=== PATIENT | female | born 1995 | race African-American/Black ===

== ENCOUNTER 2017-07-05 12:00 | Emergency (ER) | payer MEDICAID ==
[~2017-07-05] VITALS: Ht 160 cm; Wt 54.4 kg
[2017-07-05] MEDS ORDERED: PROMETHAZINE 25 MG TABLET. PO ONE (12:45)
[2017-07-05] MEDS ORDERED: ONDANSETRON ODT 4 MG TAB.RAPDIS PO ONE (12:45)
--- NOTE | 2017-07-05 13:21 | PHYS DOC ---
Past History Past Medical History: Anxiety, Depression, Ovarian Cyst, UTI, Other Past Surgical History: No Surgical History Alcohol Use: None Drug Use: None Adult General Chief Complaint Chief Complaint: ABDOMINAL PAIN HPI HPI Patient is a 22 year old F who presents with left lower quadrant abdominal pain and nausea over the past several days. She has missed her last 2 periods and typically has regular periods. 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 She feels that she also has had urinary frequency without dysuria. She notes loose stools without increased frequency. She has no significant history of vomiting. Her belly pain is dull, in the left lower quadrant, and worsened by palpation Review of Systems Review of Systems Constitutional: Denies fever or chills [] Eyes: Denies change in visual acuity, redness, or eye pain [] HENT: Denies nasal congestion or sore throat [] Respiratory: Denies cough or shortness of breath [] Cardiovascular: No additional information not addressed in HPI [] GI: Negative except history of present illness : Denies dysuria or hematuria [] Musculoskeletal: Denies back pain or joint pain [] Integument: Denies rash or skin lesions [] Neurologic: Denies headache, focal weakness or sensory changes [] Endocrine: Denies polyuria or polydipsia [] Family History Family History Noncontributory Current Medications Current Medications Current Medications Medications (Trade) Dose Ordered Sig/Minor Start Time Stop Time Status Last Admin Dose Admin Ondansetron HCl (Zofran Odt) 4 mg 1X ONCE 07/05/17 12:45 07/05/17 12:46 UNV Promethazine HCl (Phenergan) 25 mg 1X ONCE 07/05/17 12:45 07/05/17 12:46 DC Allergies Allergies Allergies Coded Allergies Type Severity Reaction Last Updated Verified ondansetron Allergy Intermediate Swelling 07/05/17 Yes Physical Exam Physical Exam Constitutional: Well developed, well nourished, no acute distress, non-toxic appearance. [] HENT: Normocephalic, atraumatic, bilateral external ears normal, oropharynx moist, no oral exudates, nose normal. [] Eyes: PERRLA, EOMI, conjunctiva normal, no discharge. [] Neck: Normal range of motion, no tenderness, supple, no stridor. [] Cardiovascular:Heart rate regular rhythm, no murmur [] Lungs & Thorax: Bilateral breath sounds clear to auscultation [] Abdomen: Bowel sounds normal, soft, no masses, no pulsatile masses. [] Mild generalized lower abdominal tenderness Skin: Warm, dry, no erythema, no rash. [] Back: No tenderness, no CVA tenderness. [] Extremities: No tenderness, no cyanosis, no clubbing, ROM intact, no edema. [] Neurologic: Alert and oriented X 3, normal motor function, normal sensory function, no focal deficits noted. [] Psychologic: Affect normal, judgement normal, mood normal. [] Current Patient Data Vital Signs Vital Signs Date Time Temp Pulse Resp B/P (MAP) Pulse Ox O2 Delivery O2 Flow Rate FiO2 07/05/17 12:10 98.1 78 18 98 Room Air Lab Results Laboratory Tests Test 07/05/17 13:04 POC Urine HCG, Qualitative hcg negative (Negative) EKG EKG [] Radiology/Procedures Radiology/Procedures Pelvic ultrasound: Radiology report was reviewed and found to have no acute disease Course & Med Decision Making Course & Med Decision Making Pertinent Labs and Imaging studies reviewed. (See chart for details) [] Dragon Disclaimer Dragon Disclaimer This chart was dictated in whole or in part using Voice Recognition software in a busy, high-work load, and often noisy Emergency Department environment. It may contain unintended and wholly unrecognized errors or omissions. Departure Departure: Impression: Primary Impression: UTI (urinary tract infection) Additional Impression: STD exposure Disposition: HOME, SELF-CARE Condition: STABLE Referrals: PCP,NO (PCP) Patient Instructions: Urinary Tract Infection Additional Instructions: Tarah was seen in the emergency room for urinary frequency and lower abdominal pain. No emergency medical condition was found during history and physical exam. Her urine was suspicious for a urinary tract infection and she feels that she has had potential exposure to STD. She was treated in the emergency room with antibiotics for both. She was advised to return to the emergency room if she develops new or worsening symptoms. She was advised to follow-up with her primary care doctor as soon as possible to establish care for further management. Problem Qualifiers Primary Impression: UTI (urinary tract infection) Urinary tract infection type: acute cystitis Hematuria presence: without hematuria Qualified Codes: N30.00 - Acute cystitis without hematuria JOSSE MOHAN MD Jul 05, 2017 13:21
[2017-07-05 13:23] LABS: BACTERIA,URINE MOD /HPF (0-FEW); BILIRUBIN,URINE NEG (NEG); CLARITY,URINE HAZY; COLOR,URINE YELLOW; GLUCOSE,URINE NEG (NEG); NITRITE,URINE NEG (NEG); RBC,URINE 0 /HPF (0-2); UROBILINOGEN,URINE 0.2 mg/dL (0.2 mg/dL)
[2017-07-05 13:24] LABS: SQUAMOUS EPITHELIAL CELL,UR MANY /LPF
--- NOTE | 2017-07-05 13:53 | RAD ---
Pelvic ultrasound 07/05/2017 Clinical history: Left pelvic pain for 2 weeks. Amenorrhea for 2 months. Negative test. Technique: Using the distended urinary bladder as a sonographic window, a real-time ultrasound examination of the pelvis was performed. Multiple images were obtained. Findings: The uterus is within normal limits in size and echogenicity. It measures 9.2 x 5.0 x 3.9 cm in longitudinal, transverse, and AP dimensions. The endometrial echo complex measures 5 mm in thickness which is within normal limits. No focal abnormality of the uterus is seen. Both ovaries are within normal limits in size and echogenicity. The right ovary measures 2.4 x 1.9 x 1.9 cm in size. The left ovary measures 2.9 x 2.7 x 2.7 cm in size. No adnexal mass is seen. No free fluid is noted. Impression: Negative study. :
[2017-07-05] MEDS ORDERED: cefTRIAXone IM 250 MG VIAL IM ONE (14:30)
[2017-07-05] MEDS ORDERED: AZITHROMYCIN 250 MG TABLET. PO ONE (14:30)
[2017-07-05 15:00] VITALS: BP 116/62
== END 2017-07-05 15:08 | disposition home or self-care (01) ==
LOC: ER 12:00
DX: N30.00 Acute cystitis without hematuria (principal); Z20.2 Contact with and (suspected) exposure to infections with a predominantly sexual mode of transmission; Z87.440 Personal history of urinary (tract) infections; Z88.8 Allergy status to other drugs, medicaments and biological substances
CPT/HCPCS: 76856; 81001; 81025; 96372; 99285; J0456; J0696; Q0169

== ENCOUNTER 2017-10-03 13:57 | Emergency (ER) | payer MEDICAID, OTHER ==
[2017-10-03 14:42] LABS: BASO % 0 % (0-3); EOS # 0.2 x10^3/uL (0.0-0.7); EOS % 3 % (0-3); HEMATOCRIT 33.6 % (36.0-47.0); HEMOGLOBIN 10.8 g/dL (12.0-15.5); LYMPH # 1.6 x10^3/uL (1.0-4.8); LYMPH % 28 % (24-48); MEAN CORPUSCULAR HEMOGLOBIN 25 pg (25-35); MEAN CORPUSCULAR HGB CONC 32 g/dL (31-37); MEAN CORPUSCULAR VOLUME 77 fL (79-100); MONO # 0.6 x10^3/uL (0.0-1.1); MONO % 10 % (0-9); NEUT # 3.4 x10^3uL (1.8-7.7); NEUT % 58 % (31-73); PLATELET COUNT 269 x10^3/uL (140-400); RED BLOOD COUNT 4.38 x10^6/uL (3.50-5.40); RED CELL DISTRIBUTION WIDTH 13.5 % (11.5-14.5); WHITE BLOOD COUNT 5.8 x10^3/uL (4.0-11.0)
[2017-10-03] MEDS ORDERED: MORPHINE SULFATE 2 MG/ML DISP.SYRIN. IV PRN (14:45)
[2017-10-03 15:13] LABS: ALBUMIN 3.5 g/dL (3.4-5.0); CALCIUM 8.7 mg/dL (8.5-10.1); CREATININE 0.6 mg/dL (0.6-1.0); GFR 152.7; POTASSIUM 3.9 mmol/L (3.5-5.1); TOTAL BILIRUBIN 0.2 mg/dL (0.2-1.0); TOTAL PROTEIN 7.1 g/dL (6.4-8.2)
--- NOTE | 2017-10-03 15:53 | RAD ---
First trimester ultrasound less than 14 weeks: Clinical indications: Left lower quadrant pain for 4 days. Positive test. Findings: Transabdominal study: The uterus is retroflexed. There is a question of a small gestational sac within the fundus of the uterus. Therefore, transvaginal sonography will be performed. There is a small amount of physiologic free fluid within the cul-de-sac. Both maternal ovaries are visualized and appear normal. Color Doppler flow is seen within both internal ovaries. No adnexal mass is seen. Transvaginal study: Number of fetuses: No pole is seen yet. There is a fluid collection within the fundal portion of the uterus in the endometrial canal. A small yolk sac is seen which confirms a gestational sac. Average gestational sac size: 0.4 cm which corresponds to an approximate gestational age of 5 weeks and 1 day EDC is June 04, 2018. heart rate: None seen yet. Cervical length: Greater than 3.0 cm. Extrachorionic hemorrhage: None. Uterus: No uterine fibroids are seen. Maternal ovaries: Right ovary: 2.2 cm x 2.4 cm x 3.1 cm. Small corpus luteum seen within the right ovary measuring 8 mm. Color-flow Doppler: Present. Left ovary: 1.8 cm x 2.1 cm x 2.4 cm. Normal. Color-flow Doppler: Present. Adnexa: no adnexal masses are seen. Free fluid: Small amount. Impression: Gestational sac containing only a yolk sac at this in point in time with approximate gestational age of 5 weeks. Therefore, correlation with serial quantitative beta hCG studies is recommended.
--- NOTE | 2017-10-03 16:06 | PHYS DOC ---
General Chief Complaint: ABDOMINAL PAIN Stated Complaint: ABD PAIN Time Seen by MD: 14:45 Source: patient Exam Limitations: no limitations Problems: History of Present Illness Initial Comments Patient is a 22-year-old 5 para 2 female with positive home test who comes to the ED complaining of left adnexal pain. Patient states that she has history of ectopic and current symptoms are similar to prior occurrence. She states that symptoms have been increasing for the past 4 days she's had no bleeding last menstrual period was the beginning of August. Her vital signs are stable on ED arrival Timing/Duration: other Severity: moderate Modifying Factors: improves with other Associated Symptoms: other Allergies: Coded Allergies: ondansetron (Verified Allergy, Intermediate, Swelling, 07/05/17) angioedema Past Medical History Medical History: other (anxiety, depression, ectopic ) Surgical History: noncontributory Para: 2 : 5 LMP (Females 10-50): Social History Smoker: cigarettes Alcohol: rarely Drugs: none Review of Systems Constitutional: denies chills, denies diaphoresis, denies fever, denies malaise Respiratory: denies cough, denies shortness of breath Cardiovascular: denies chest pain, denies palpitations Gastrointestinal: see HPI Genitourinary: see HPI Musculoskeletal: denies back pain, denies joint swelling, denies neck pain Psychiatric/Neurological: denies headache, denies numbness, denies paresthesia Physical Exam General Appearance: WD/WN, no apparent distress Ear, Nose, Throat: hearing grossly normal, normal ENT inspection, normal pharynx Neck: non-tender, full range of motion, supple Respiratory: lungs clear, normal breath sounds Cardiovascular: normal peripheral pulses, regular rate, rhythm, no edema Gastrointestinal: normal bowel sounds, non tender, soft Back: no CVA tenderness, no vertebral tenderness Extremities: non-tender, normal inspection, no pedal edema Neurologic/Psychiatric: precision lens centerer and edger II-XII nml as tested, no motor/sensory deficits, alert Skin: normal color, warm/dry Orders, Labs, Meds PATIENT: LILI BUNCH ACCOUNT: [id number] : 1995 LOCATION: ER AGE: 22 SEX: F EXAM STATUS: REG ER ORD. PHYSICIAN: ALLY MCCOY DO REASON: r/o ectopic LLQ pain x's 4 days PROCEDURE: OB <14 WKS First trimester ultrasound less than 14 weeks: Clinical indications: Left lower quadrant pain for 4 days. Positive test. Findings: Transabdominal study: The uterus is retroflexed. There is a question of a small gestational sac within the fundus of the uterus. Therefore, transvaginal sonography will be performed. There is a small amount of physiologic free fluid within the cul-de-sac. Both maternal ovaries are visualized and appear normal. Color Doppler flow is seen within both internal ovaries. No adnexal mass is seen. Transvaginal study: Number of fetuses: No pole is seen yet. There is a fluid collection within the fundal portion of the uterus in the endometrial canal. A small yolk sac is seen which confirms a gestational sac. Average gestational sac size: 0.4 cm which corresponds to an approximate gestational age of 5 weeks and 1 day EDC is June 04, 2018. heart rate: None seen yet. Cervical length: Greater than 3.0 cm. Extrachorionic hemorrhage: None. Uterus: No uterine fibroids are seen. Maternal ovaries: Right ovary: 2.2 cm x 2.4 cm x 3.1 cm. Small corpus luteum seen within the right ovary measuring 8 mm. Color-flow Doppler: Present. Left ovary: 1.8 cm x 2.1 cm x 2.4 cm. Normal. Color-flow Doppler: Present. Adnexa: no adnexal masses are seen. Free fluid: Small amount. Impression: Gestational sac containing only a yolk sac at this in point in time with approximate gestational age of 5 weeks. Therefore, correlation with serial quantitative beta hCG studies is recommended. DICTATED AND SIGNED BY: ANJEL LYNCH MD DATE: 10/03/17 1544 CC: PCP,NO; ALLY MCCOY DO ~ Hemoglobin 10.8, MCV 77, glucose 66 I discussed findings with the patient and the need for establishment of care with SENIOR SALES COMPENSATION ANALYST. I discussed smoking cessation and vitamins as well as outpatient workup for microcytic anemia. I discussed oral hydration signs and symptoms to monitor and indications for urgent return. Patient questions were answered to her satisfaction she expressed agreement and understanding of the treatment plan. Departure Time of Disposition: 16:04 Disposition: 01 HOME, SELF-CARE Diagnosis: Condition: STABLE Patient Instructions: ABCs of , Medicines During Additional Instructions: Rest, no strenuous activity. Please review the patient education materials given regarding and medication she can take during . Start vitamins daily. Aggressive hydration with Gatorade or water. Follow-up with Dr. Jeffers SENIOR SALES COMPENSATION ANALYST located upstairs in this building, [phone] call to schedule appointment. Return to ED with new or changing symptoms. ALLY MCCOY DO Oct 03, 2017 16:06
[2017-10-03 16:20] VITALS: BP 102/55
== END 2017-10-03 16:20 | disposition home or self-care (01) ==
LOC: ER 13:57
DX: O26.891 Other specified pregnancy related conditions, first trimester (principal); R10.2 Pelvic and perineal pain; O99.341 Other mental disorders complicating pregnancy, first trimester; O99.331 Smoking (tobacco) complicating pregnancy, first trimester; F41.9 Anxiety disorder, unspecified; F32.9 Major depressive disorder, single episode, unspecified; Z3A.01 Less than 8 weeks gestation of pregnancy; Z88.8 Allergy status to other drugs, medicaments and biological substances
CPT/HCPCS: 36415; 76801; 80053; 81025; 84702; 85025; 96374; 99285; J2270

== ENCOUNTER 2018-04-12 11:19 | Emergency (ER) | payer OTHER ==
[~2018-04-12] VITALS: Ht 160 cm; Wt 54.4 kg
[2018-04-12 11:19] VITALS: BP 128/71
--- NOTE | 2018-04-12 11:54 | PHYS DOC ---
Past History Past Medical History: Anxiety, Depression Past Surgical History: No Surgical History Smoking: Cigarettes Alcohol Use: Rarely Drug Use: None Adult General Chief Complaint Chief Complaint: OB/UTERINE CONTRACTIONS HPI HPI 22-year-old female patient with history of anxiety A2 at 32 weeks of gestation states to [place] oil 3 days ago for constipation 3 days ago and since then had pressure feeling in her vagina and rectal area with some white discharge and thinks she is in labor. States she feels movement and denies vaginal bleeding, abdominal complexion, fever and chills, nausea and vomiting. Review of Systems Review of Systems Constitutional: Denies fever or chills [] Eyes: Denies change in visual acuity, redness, or eye pain [] HENT: Denies nasal congestion or sore throat [] Respiratory: Denies cough or shortness of breath [] Cardiovascular: No additional information not addressed in HPI [] GI: Denies abdominal pain, nausea, vomiting, bloody stools or diarrhea [] : Denies dysuria or hematuria [] Musculoskeletal: Denies back pain or joint pain [] Integument: Denies rash or skin lesions [] Neurologic: Denies headache, focal weakness or sensory changes [] Endocrine: Denies polyuria or polydipsia [] All other systems were reviewed and found to be within normal limits, except as documented in this note. Allergies Allergies Allergies Coded Allergies Type Severity Reaction Last Updated Verified ondansetron Allergy Intermediate Swelling 07/05/17 Yes Physical Exam Physical Exam Constitutional: Well nourished, mild distress, non-toxic appearance, ( [] HENT: Normocephalic, atraumatic Eyes: PERRLA, EOMI, conjunctiva normal, no discharge. [] Neck: Normal range of motion, no tenderness, supple, no stridor. [] Cardiovascular:Heart rate regular rhythm, no murmur [] Lungs & Thorax: Bilateral breath sounds clear to auscultation [] Abdomen: Gravid abdomen, heart rate 140, no abdominal tenderness or contraction, Bowel sounds normal, soft, no tenderness, no masses, no pulsatile masses. [Vaginal exam in present of communication studies professor showed high cervix is fingertip open without dilatation, white discharge and cervix Skin: Warm, dry, no erythema, no rash. [] Back: No tenderness, no CVA tenderness. [] Extremities: No tenderness, no cyanosis, no clubbing, ROM intact, no edema. [] Neurologic: Alert and oriented X 3, normal motor function, normal sensory function, no focal deficits noted. [] Psychologic: Anxious, mood normal. [] EKG EKG [] Radiology/Procedures Radiology/Procedures [] Course & Med Decision Making Course & Med Decision Making Pertinent Labs reviewed. (See chart for details) Evolution of patient in ER showed 22-year-old female patient presented to ER with complaining of being in labor. Patient looking labor. Labs showed UTI and patient instructed to place and instructed to follow with her OB/GY reguarding vaginal discharge Dragon Disclaimer Dragon Disclaimer This electronic medical record was generated, in whole or in part, using a voice recognition dictation system. 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
[2018-04-12 11:56] LABS: CLARITY,URINE CLOUDY; COLOR,URINE AMBER; GLUCOSE,URINE NEG (NEG)
[2018-04-12 11:57] LABS: BILIRUBIN,URINE NEG (NEG); NITRITE,URINE NEG (NEG); UROBILINOGEN,URINE 1 mg/dL (0.2 mg/dL)
[2018-04-12] MEDS ORDERED: CEPH-264 PO (12:17)
== END 2018-04-12 12:20 | disposition home or self-care (01) ==
LOC: ER 11:19
DX: O23.43 Unspecified infection of urinary tract in pregnancy, third trimester (principal); O99.613 Diseases of the digestive system complicating pregnancy, third trimester; K59.00 Constipation, unspecified; O47.03 False labor before 37 completed weeks of gestation, third trimester; O99.343 Other mental disorders complicating pregnancy, third trimester; O99.333 Smoking (tobacco) complicating pregnancy, third trimester; F41.9 Anxiety disorder, unspecified; F32.9 Major depressive disorder, single episode, unspecified; Z3A.32 32 weeks gestation of pregnancy; Z71.6 Tobacco abuse counseling; Z88.8 Allergy status to other drugs, medicaments and biological substances
CPT/HCPCS: 81003; 99283

== ENCOUNTER 2018-10-23 18:36 | Emergency (ER) | payer OTHER ==
[~2018-10-23] VITALS: Ht 154.9 cm; Wt 56.7 kg
[~2018-10-23 18:36] MED LIST: CEPH-264 PO
[2018-10-23] MEDS ORDERED: cefTRIAXone IM 250 MG VIAL IM ONE (19:30)
[2018-10-23] MEDS ORDERED: DOXYCYCLINE HYCLATE 100 MG TABLET PO ONE (19:30)
[2018-10-23 19:52] LABS: BACTERIA,URINE 0 /HPF (0-FEW); BILIRUBIN,URINE NEG (NEG); CLARITY,URINE HAZY; COLOR,URINE AMBER; GLUCOSE,URINE NEG (NEG); NITRITE,URINE NEG (NEG); RBC,URINE OCC /HPF (0-2); SQUAMOUS EPITHELIAL CELL,UR FEW /LPF; UROBILINOGEN,URINE 1 mg/dL (0.2 mg/dL)
[2018-10-23] MEDS ORDERED: METR70GE14 VG (19:55)
[2018-10-23] MEDS ORDERED: DOXY100C2 PO (19:55)
--- NOTE | 2018-10-23 19:55 | PHYS DOC ---
Past History Past Medical History: Anemia, Bipolar, Other Past Surgical History: No Surgical History Smoking: Cigarettes Alcohol Use: None Drug Use: None Adult General Chief Complaint Chief Complaint: FOREIGN BODY VAGINA HPI HPI Patient is a 23 year old female who presents with complaint of pelvic pain and vaginal discharge. The patient states that she is concerned she may have a tampon stuck in her vagina. She states that she thinks she placed a tampon on September 30 but does not remember removing it. Patient states that over the past week she has started developing lower pelvic pain and has been having thick foul -smelling discharge. Patient states that she is sexually active with 2 partners and is concerned that she could be at risk for sexually transmitted infection. Denies any fever, nausea, vomiting. Has not taking medications for symptoms. Does not follow with primary doctor. Review of Systems Review of Systems Constitutional: Denies fever or chills [] Eyes: Denies change in visual acuity, redness, or eye pain [] HENT: Denies nasal congestion or sore throat [] Respiratory: Denies cough or shortness of breath [] Cardiovascular: Denies chest pain or edema[] GI: Denies abdominal pain, nausea, vomiting, bloody stools or diarrhea [] : Pelvic pain, vaginal discharge, denies dysuria or hematuria[] Musculoskeletal: Denies back pain or joint pain [] Integument: Denies rash or skin lesions [] Neurologic: Denies headache, focal weakness or sensory changes [] All other systems were reviewed and found to be within normal limits, except as documented in this note. Allergies Allergies Allergies Coded Allergies Type Severity Reaction Last Updated Verified ondansetron Allergy Intermediate Swelling 07/05/17 Yes Physical Exam Physical Exam Constitutional: Alert, afebrile, no acute distress. [] HENT: Normocephalic, atraumatic, bilateral external ears normal, oropharynx moist, no oral exudates, nose normal. [] Eyes: PERRLA, EOMI, conjunctiva normal, no discharge. [] Neck: Normal range of motion, no tenderness, supple, no stridor. [] Cardiovascular:Heart rate regular rhythm, no murmur [] Lungs & Thorax: Bilateral breath sounds clear to auscultation [] Abdomen: Bowel sounds normal, soft, mild suprapubic tenderness to palpation, no masses, no pulsatile masses. : Normal external exam, thick white vaginal secretions with malodorous clearish discharge, no visible foreign body in vaginal canal, mild midline tenderness on bimanual exam, no adnexal tenderness.[] Skin: Warm, dry, no erythema, no rash. [] Back: No tenderness, no CVA tenderness. [] Extremities: No tenderness, no cyanosis, no clubbing, ROM intact, no edema. [] Neurologic: Alert and oriented X 3, normal motor function, normal sensory function, no focal deficits noted. [] Current Patient Data Vital Signs Vital Signs Date Time Temp Pulse Resp B/P (MAP) Pulse Ox O2 Delivery O2 Flow Rate FiO2 10/23/18 18:57 98.6 102 22 99 Room Air Lab Results Laboratory Tests Test 10/23/18 19:25 10/23/18 19:33 Urine Collection Type Void Urine Color Nessa Urine Clarity Hazy Urine pH 6.5 Urine Specific Jeffers 1.025 Urine Protein 30 mg/dl Urine Glucose (UA) Neg mg/dL Urine Ketones (Stick) Neg mg/dL Urine Blood Neg Urine Nitrite Neg Urine Bilirubin Neg Urine Urobilinogen Dipstick 1 mg/dL Urine Leukocyte Esterase Neg Urine RBC Occ /HPF Urine WBC 1-4 /HPF Urine Squamous Epithelial Cells Few /LPF Urine Bacteria 0 /HPF Urine Mucus Slight /LPF Bedside Urine HCG, Qualitative hcg negative EKG EKG Not performed[] Radiology/Procedures Radiology/Procedures Not performed[] Course & Med Decision Making Course & Med Decision Making Pertinent Labs and Imaging studies reviewed. (See chart for details) There was no foreign body identified on pelvic exam. Due to potential exposure to sexually transmitted infection with pelvic pain, the patient was treated empirically with Rocephin and doxycycline for possible gonorrhea and Chlamydia infection. Wet prep shows evidence of bacterial vaginosis. Patient prescribed doxycycline and MetroGel for outpatient treatment. Advised follow-up with primary doctor in 1 week for reevaluation and return to emergency department for any worsening symptoms. Patient was understanding and in agreement with treatment plan. Dragon Disclaimer Dragon Disclaimer This electronic medical record was generated, in whole or in part, using a voice recognition dictation system. Departure Departure: Impression: Primary Impression: Bacterial vaginosis Additional Impression: Pelvic pain Disposition: 01 HOME, SELF-CARE Condition: IMPROVED Referrals: PCP,UNKNOWN (PCP) Patient Instructions: Bacterial Vaginosis, Pelvic Pain, Female Additional Instructions: Refrain from any sexual intercourse until symptoms have resolved. Follow-up with primary doctor in 1 week for reevaluation. Return to the emergency department for any worsening symptoms. Scripts Metronidazole (METROGEL-VAGINAL) 70 Gm Gel.w.appl 1 APPFUL VG QHS for 7 Days, #70 GM Prov: CONCHIS MCCALL MD 10/23/18 Doxycycline Hyclate (DOXYCYCLINE HYCLATE) 100 Mg Capsule 1 CAP PO BID, #20 CAP Prov: CONCHIS MCCALL MD 10/23/18 Problem Qualifiers CONCHIS MCCALL MD Oct 23, 2018 19:55
[2018-10-23 20:00] VITALS: BP 110/72
[2018-10-26 14:08] LABS: CHLAMYDIA PROBE Negative (Negative)
== END 2018-10-23 20:20 | disposition home or self-care (01) ==
LOC: ER 18:36
DX: N76.0 Acute vaginitis (principal); B96.89 Other specified bacterial agents as the cause of diseases classified elsewhere; F31.9 Bipolar disorder, unspecified; F17.210 Nicotine dependence, cigarettes, uncomplicated; Z86.2 Personal history of diseases of the blood and blood-forming organs and certain disorders involving the immune mechanism; Z88.8 Allergy status to other drugs, medicaments and biological substances
CPT/HCPCS: 36415; 81001; 81025; 87491; 87591; 96372; 99283; J0696; Q0111

== ENCOUNTER 2019-12-25 15:39 | Emergency (ER) | payer OTHER ==
[~2019-12-25] VITALS: Ht 154.9 cm; Wt 50.3 kg
[2019-12-25 15:39] VITALS: BP 130/83
[~2019-12-25 15:39] MED LIST changes: +DOXY100C2 PO; +METR70GE14 VG
[2019-12-25] MEDS ORDERED: MORPHINE SULFATE 4 MG/ML DISP.SYRIN. IV ONE (16:00)
--- NOTE | 2019-12-25 16:13 | PHYS DOC ---
Past History Past Medical History: Anemia, Bipolar, Other Past Surgical History: No Surgical History Smoking: Cigarettes Alcohol Use: None Drug Use: None Adult General Chief Complaint Chief Complaint: HEADACHE HPI HPI 24-year-old female presents with headache. She has been having intermittent back discomfort and headaches since having her epidural for her childbirth 2 weeks ago. Yesterday and today the patient has had worse headaches than she's had previously. Today it is extremely bad and she has taken her Tylenol 3 without any relief. It feels a constant pressure behind her eyes. She denies fever or chills. She denies change in vision. She has no known blood disorders such as Willebrand's, or sickle cell. The patient has taken a total of 11 Tylenol 3's over the last 2 weeks. She has been eating and drinking normally. She denies any trauma. Review of Systems Review of Systems Constitutional: Denies fever or chills [] Eyes: Denies change in visual acuity, redness, or eye pain [] HENT: Denies nasal congestion or sore throat [] Respiratory: Denies cough or shortness of breath [] Cardiovascular: No additional information not addressed in HPI [] GI: Denies abdominal pain, nausea, vomiting, bloody stools or diarrhea [] : Denies dysuria or hematuria [] Musculoskeletal: Denies back pain or joint pain [] Integument: Denies rash or skin lesions [] Neurologic: Headache. Denies focal weakness or sensory changes [] Endocrine: Denies polyuria or polydipsia [] All other systems were reviewed and found to be within normal limits, except as documented in this note. Current Medications Current Medications Current Medications Medications (Trade) Dose Ordered Sig/Minor Start Time Stop Time Status Last Admin Dose Admin Metoclopramide HCl (Reglan Vial) 10 mg 1X ONCE 12/25/19 16:15 12/25/19 16:16 Morphine Sulfate (Morphine 4mg Syringe) 4 mg 1X ONCE 12/25/19 16:00 12/25/19 16:06 DC 12/25/19 16:05 4 MG Allergies Allergies Allergies Coded Allergies Type Severity Reaction Last Updated Verified naproxen Allergy Intermediate 10/23/18 Yes ondansetron Allergy Intermediate Swelling 10/23/18 Yes ibuprofen Allergy Unknown 12/25/19 Yes Physical Exam Physical Exam Constitutional: Well developed, well nourished, no acute distress, non-toxic appearance. [] HENT: Normocephalic, atraumatic, bilateral external ears normal, oropharynx moist, no oral exudates, nose normal. [] Eyes: PERRLA, EOMI, conjunctiva normal, no discharge. [] Neck: Normal range of motion, no tenderness, supple, no stridor. [] Cardiovascular:Heart rate regular rhythm, no murmur [] Lungs & Thorax: Bilateral breath sounds clear to auscultation [] Abdomen: Bowel sounds normal, soft, no tenderness, no masses, no pulsatile masses. [] Skin: Warm, dry, no erythema, no rash. [] Back: No tenderness, no CVA tenderness. [] Extremities: No tenderness, no cyanosis, no clubbing, ROM intact, no edema. [] Neurologic: Alert and oriented X 3, normal motor function, normal sensory function, no focal deficits noted. [] Psychologic: Affect normal, judgement normal, mood normal. [] EKG EKG [] Radiology/Procedures Radiology/Procedures [] Impressions: CT HEAD WO CONTRAST Date: 12/25/2019 4:11 PM Clinical Indication: Severe headache, recent epidural Comparison: None. Technique: 5 mm axial tomographic images were obtained of the head without contrast. These were viewed on brain and bone windows. One or more of the following dose reduction techniques were utilized: Automated exposure control (AEC), Adjustment of mA and/or kV according to patient size, Use of iterative reconstruction technique such as ASiR, CT scan done according to ALARA and image gently/image wisely Findings: The brain parenchyma is normal in attenuation. No intra- or extra-axial mass or fluid collection. No acute hemorrhage. The ventricles are normal in size, shape, and morphology. The hart-white matter junction is normal. The subarachnoid cisterns are patent. Near-complete opacification of the paranasal sinuses. Air-fluid level in the right sphenoid and posterior ethmoid sinuses. The visualized portions of the orbits and globes are normal. The mastoid air cells are clear. The sample dye mixer topogram shows no lytic lesion or fracture. Impression: No acute intracranial process. Near-complete opacification of the paranasal sinuses, with air-fluid level noted in the right sphenoid and posterior ethmoid sinuses. This could represent acute sinusitis in the appropriate clinical setting. Electronically signed by: David Palma MD (12/25/2019 4:32 PM) [facility] DICTATED AND SIGNED BY: DAIVD PALMA MD DATE: 12/25/191631 CC: JAMILAH CHEEMA DO; PCP,ADRI ~ Course & Med Decision Making Course & Med Decision Making Pertinent Labs and Imaging studies reviewed. (See chart for details) The patient's head CT is unremarkable except for evidence of sinus infection. It's possible this is contributing to her headache. It may not be an epidural headache. The patient was given 4 of morphine which has calmed her symptoms. Her labs are unremarkable except for mild anemia. I will treat the patient with p rescription of Augmentin for 7 days or sinusitis. We'll give the first dose in the ED. I spoke with the strategic marketing specialist, Dr. Ospina and he has recommended Fioricet and high caffeine intake as well as laying flat on her back at home. I have explained this to the patient we will give her first dose of Fioricet in the ED. She is stable for discharge at this time. [] Dragon Disclaimer Dragon Disclaimer This electronic medical record was generated, in whole or in part, using a voice recognition dictation system. Departure Departure: Impression: Primary Impression: Headache Additional Impression: Acute sinusitis Disposition: HOME, SELF-CARE Condition: IMPROVED Referrals: PCP,ADRI (PCP) Patient Instructions: Epidural Blood Patching in Spinal Headache, Sinusitis, [id number] Scripts Butalbital/Aspirin/Caffeine (FIORINAL 50-325-40 MG CAPSULE) 1 Each Capsule 1 EACH PO Q4HRS PRN for HEADACHE, #14 CAP Prov: JAMILAH CHEEMA DO 12/25/19 Amoxicillin/Potassium Clav (AUGMENTIN 875-125 TABLET) 1 Each Tablet 1 TAB PO BID for sinusitis for 7 Days, #14 TAB 0 Refills Prov: JMAILAH CHEEMA DO 12/25/19 Problem Qualifiers Primary Impression: Headache Headache type: other vascular headache Qualified Codes: G44.1 - Vascular headache, not elsewhere classified Additional Impression: Acute sinusitis Sinusitis location: sphenoidal Recurrence: non-recurrent Qualified Codes: J01.30 - Acute sphenoidal sinusitis, unspecified JAMILAH CHEEMA DO Dec 25, 2019 16:13
[2019-12-25] MEDS ORDERED: METOCLOPRAMIDE HCL 10 MG/2 ML VIAL. IVP ONE (16:15)
[2019-12-25] MEDS ORDERED: IV NORMAL SALINE 1,000ML 1,000 ML IV ONE (16:15)
[2019-12-25 16:23] LABS: BASO % 0 % (0-3); EOS % 0 % (0-3); HEMATOCRIT 35.5 % (36.0-47.0); HEMOGLOBIN 10.9 g/dL (12.0-15.5); LYMPH # 1.2 x10^3/uL (1.0-4.8); LYMPH % 14 % (24-48); MEAN CORPUSCULAR HEMOGLOBIN 22 pg (25-35); MEAN CORPUSCULAR HGB CONC 31 g/dL (31-37); MEAN CORPUSCULAR VOLUME 73 fL (79-100); MONO # 0.4 x10^3/uL (0.0-1.1); MONO % 5 % (0-9); NEUT % 80 % (31-73); PLATELET COUNT 636 x10^3/uL (140-400); RED BLOOD COUNT 4.89 x10^6/uL (3.50-5.40); RED CELL DISTRIBUTION WIDTH 16.8 % (11.5-14.5); WHITE BLOOD COUNT 8.7 x10^3/uL (4.0-11.0)
[2019-12-25 16:34] LABS: CALCIUM 8.9 mg/dL (8.5-10.1); CREATININE 0.6 mg/dL (0.6-1.0); GFR 149.9; POTASSIUM 3.6 mmol/L (3.5-5.1)
--- NOTE | 2019-12-25 16:34 | RAD ---
CT HEAD WO CONTRAST Date: 12/25/2019 4:11 PM Clinical Indication: Severe headache, recent epidural Comparison: None. Technique: 5 mm axial tomographic images were obtained of the head without contrast. These were viewed on brain and bone windows. One or more of the following dose reduction techniques were utilized: Automated exposure control (AEC), Adjustment of mA and/or kV according to patient size, Use of iterative reconstruction technique such as ASiR, CT scan done according to ALARA and image gently/image wisely Findings: The brain parenchyma is normal in attenuation. No intra- or extra-axial mass or fluid collection. No acute hemorrhage. The ventricles are normal in size, shape, and morphology. The hart-white matter junction is normal. The subarachnoid cisterns are patent. Near-complete opacification of the paranasal sinuses. Air-fluid level in the right sphenoid and posterior ethmoid sinuses. The visualized portions of the orbits and globes are normal. The mastoid air cells are clear. The boat repairer topogram shows no lytic lesion or fracture. Impression: No acute intracranial process. Near-complete opacification of the paranasal sinuses, with air-fluid level noted in the right sphenoid and posterior ethmoid sinuses. This could represent acute sinusitis in the appropriate clinical setting. Electronically signed by: Saad Palma MD (12/25/2019 4:32 PM) [facility]
[2019-12-25 16:40] LABS: ALBUMIN 3.2 g/dL (3.4-5.0); ALBUMIN/GLOBULIN RATIO 0.7 (1.0-1.7); TOTAL BILIRUBIN 0.3 mg/dL (0.2-1.0); TOTAL PROTEIN 8.1 g/dL (6.4-8.2)
[2019-12-25] MEDS ORDERED: AMOXICILLIN/K CLAV 875/125MG TABLET. PO ONE (17:30)
[2019-12-25] MEDS ORDERED: AMOX1TAB61 PO (17:30)
[2019-12-25] MEDS ORDERED: BUTALB/APAP/CAFEIN 50/325/40MG TABLET. PO STA (17:53)
[2019-12-25] MEDS ORDERED: BUTA1CAP31 PO (18:05)
[2019-12-25 18:41] LABS: ANISOCYTOSIS SLIGHT; HYPOCHROMIA SLIGHT; OVALOCYTES OCC; PLT ESTIMATE INCREASED (ADEQUATE); POLYCHROMASIA SLIGHT; SCHISTOCYTES OCC
== END 2019-12-25 18:38 | disposition home or self-care (01) ==
LOC: ER 15:39
DX: J01.30 Acute sphenoidal sinusitis, unspecified (principal); R51 Headache; F31.9 Bipolar disorder, unspecified; F17.210 Nicotine dependence, cigarettes, uncomplicated; Z86.2 Personal history of diseases of the blood and blood-forming organs and certain disorders involving the immune mechanism; Z88.6 Allergy status to analgesic agent; Z88.8 Allergy status to other drugs, medicaments and biological substances
CPT/HCPCS: 36415; 70450; 80053; 85025; 96374; 96375; 99285; J2270; J2765; J7030

== ENCOUNTER 2022-02-10 17:57 | Emergency (ER) | payer OTHER ==
[~2022-02-10] VITALS: Ht 157.5 cm; Wt 50.0 kg
[~2022-02-10 17:57] MED LIST changes: +AMOX1TAB61 PO; +BUTA1CAP31 PO; -DOXY100C2 PO; +DOXY100C3 PO
--- NOTE | 2022-02-10 18:07 | PHYS DOC ---
Past History Past Medical History: Anemia, Anxiety, Bipolar, Depression, Other Past Medical History Limited secondary to intoxication Past Surgical History: No Surgical History Past Surgical History Limited secondary to intoxication Smoking: Cigarettes Alcohol Use: Heavy Drug Use: None Social History Limited secondary to intoxication General Adult EDM: Chief Complaint: Found unconscious at the [employer] after drinking heavily HPI: HPI: Patient is a 26 year old female who presents with c/o intoxication today. Patient states that three days ago she found out that her significant other and has been drinking heavily ever since. She endorses drinking about one pint of vodka a day and not eating a lot of food. Today, she walked to the [employer] and had a sandwich. She became nauseous and vomited once but states that she is no longer nauseous. She fell asleep while at the restaurant and was not waking easily so the ambulance was called and she was brought in. She has no complaints at this time including no abdominal pain, nausea, vomiting, headaches or vision changes. She denies any regular alcohol use or drug use. She denies any SI/HI at this time. History of present illness limited secondary to intoxication. Review of Systems: Review of Systems: Constitutional: Denies fever or chills Neurologic: Reports altered mental status Review of systems limited secondary to intoxication Allergies: Allergies: Allergies Coded Allergies Type Severity Reaction Last Updated Verified naproxen Allergy Intermediate 10/23/18 Yes ondansetron Allergy Intermediate Swelling 10/23/18 Yes ibuprofen Allergy Unknown 12/25/19 Yes Physical Exam: PE: Constitutional: Well developed, well nourished, no acute distress, non-toxic appearance HENT: Normocephalic, atraumatic Eyes: Conjunctiva normal, no discharge Neck: Normal range of motion, no tenderness, supple Lungs & Thorax: No respiratory distress, equal chest rise and fall Abdomen: Soft, no tenderness Skin: Warm, dry, no erythema, no rash Extremities: No tenderness, ROM intact, no edema Neurologic: Alert and oriented X 3, moving all extremities appropriately Psychologic: Affect normal, judgment normal; no suicidal or homicidal ideation EKG: EKG: [] Radiology/Procedures: Radiology/Procedures: [] Heart Score: C/O Chest Pain: N/A Course & Med Decision Making: Course & Med Decision Making Pertinent Lab studies reviewed. (See chart for details) Patient presents with HPI and physical exam consistent for alcohol intoxication. Patient appears intoxicated upon arrival. Patient allowed to sleep and sober in emergency department. Banana bag provided. Labs obtained and posted to chart. Patient subsequently clinically sober. Patient stable for discharge with outpatient follow-up with PCP. Discussed findings and plan with patient, who acknowledges understanding and agreement. Samanta Disclaimer: Samanta Disclaimer: This electronic medical record was generated, in whole or in part, using a voice recognition dictation system. Departure Departure: Impression: Primary Impression: Alcohol intoxication Qualified Codes: F10.929 - Alcohol use, unspecified with intoxication, unspecified Disposition: HOME / SELF CARE / HOMELESS Condition: STABLE Referrals: PCP,NO (PCP) Patient Instructions: Alcohol Intoxication, Adzl-el-Avxd, Alcohol and Drug Addiction, Finding Treatment, Alcohol, FAQs Additional Instructions: Please call [facility] at to seek help for your mental health and/or drug/alcohol abuse. SELAM KOHLI DO Feb 10, 2022 18:07
[2022-02-10] MEDS: MVI, ADULT NO.4 WITH VIT K 10 ML, FOLIC ACID INJ 1 MG, THIAMINE INJ 100 MG in IV NORMAL... IV ONE (18:25)
[2022-02-10] MEDS ORDERED: THIAMINE 200 MG/2 ML VIAL. IV ONE (18:26)
[2022-02-10] MEDS ORDERED: MVI, ADULT NO.4 WITH VIT K 10 ML VIAL IV ONE (18:26)
[2022-02-10] MEDS ORDERED: FOLIC ACID 1 MG TABLET ONE (18:27)
[2022-02-10 19:03] LABS: BASO % 0 % (0-3); EOS # 0.1 x10^3/uL (0.0-0.7); EOS % 1 % (0-3); HEMATOCRIT 35.2 % (36.0-47.0); LYMPH # 2.2 x10^3/uL (1.0-4.8); LYMPH % 39 % (24-48); MEAN CORPUSCULAR HEMOGLOBIN 22 pg (25-35); MEAN CORPUSCULAR HGB CONC 31 g/dL (31-37); MEAN CORPUSCULAR VOLUME 71 fL (79-100); MONO # 0.3 x10^3/uL (0.0-1.1); MONO % 5 % (0-9); NEUT % 55 % (31-73); PLATELET COUNT 370 x10^3/uL (140-400); RED BLOOD COUNT 4.95 x10^6/uL (3.50-5.40); RED CELL DISTRIBUTION WIDTH 18.5 % (11.5-14.5); WHITE BLOOD COUNT 5.5 x10^3/uL (4.0-11.0)
[2022-02-10 19:08] LABS: CALCIUM 9.1 mg/dL (8.5-10.1); CREATININE 0.7 mg/dL (0.6-1.0); GFR 123.4; POTASSIUM 3.6 mmol/L (3.5-5.1)
[2022-02-10] MEDS: diphenhydrAMINE 50 MG/ML VIAL IVP ONE (19:10)
[2022-02-10] MEDS: METOCLOPRAMIDE HCL 10 MG/2 ML VIAL. IVP ONE (19:10)
[2022-02-10 19:14] LABS: ALBUMIN 4.4 g/dL (3.4-5.0); MAGNESIUM 2.4 mg/dL (1.8-2.4); TOTAL BILIRUBIN 0.4 mg/dL (0.2-1.0); TOTAL PROTEIN 8.7 g/dL (6.4-8.2)
[2022-02-10 19:33] LABS: ANISOCYTOSIS SLIGHT; HYPOCHROMIA MOD; MICROCYTOSIS SLIGHT; PLT ESTIMATE ADEQUATE (ADEQUATE)
[2022-02-10 22:55] VITALS: BP 120/48
[2022-02-10 23:11] LABS: BARBITURATES NEG (NEG); BENZODIAZEPINES NEG (NEG); CANNABINOIDS POS (NEG); COCAINE NEG (NEG); METHADONE NEG (NEG); OPIATES NEG (NEG); PHENCYCLIDINE NEG (NEG)
[2022-02-10 23:16] LABS: AMPHETAMINE/METHAMPHETAMINE NEG (NEG)
[2022-02-10 23:19] LABS: BACTERIA,URINE MOD /HPF (0-FEW); CLARITY,URINE CLEAR; COLOR,URINE YELLOW; GLUCOSE,URINE NEG (NEG); NITRITE,URINE NEG (NEG); RBC,URINE 0 /HPF (0-2); SQUAMOUS EPITHELIAL CELL,UR MANY /LPF
== END 2022-02-10 22:57 | disposition home or self-care (01) ==
LOC: ER 17:57
DX: F10.229 Alcohol dependence with intoxication, unspecified (principal); F41.9 Anxiety disorder, unspecified; F31.9 Bipolar disorder, unspecified; F17.210 Nicotine dependence, cigarettes, uncomplicated; Z86.2 Personal history of diseases of the blood and blood-forming organs and certain disorders involving the immune mechanism; Z88.8 Allergy status to other drugs, medicaments and biological substances; Z88.6 Allergy status to analgesic agent; Y90.7 Blood alcohol level of 200-239 mg/100 ml
CPT/HCPCS: 36415; 80053; 80307; 81001; 81025; 83735; 85025; 87086; 96365; 96375; 99285; G0480; J1200; J2765; J7030